=== PATIENT | female | born 1950 | race African-American/Black ===

== ENCOUNTER 2024-11-17 05:25 | Inpatient (IN) | payer MEDICARE, OTHER ==
[~2024-11-17] VITALS: Ht 177.8 cm; Wt 69.2 kg
[2024-11-17 06:50] LABS: Urine Bacteria None Seen /hpf (None Seen)
[2024-11-17 06:54] LABS: Hematocrit 46.3 % (36.0-46.0); Hemoglobin 14.2 g/dL (12.2-16.2); Mean Corpuscular Hemoglobin 26.7 pg (28.0-32.0); Mean Corpuscular Hgb Conc. 30.6 g/dL (32.0-36.0); Mean Corpuscular Volume 87.2 fL (80.0-100.0); Platelet Count (auto) 321 10^3/uL (140-450); Red Blood Cells 5.31 10^6/uL (4.0-5.20); Red Cell Distribution Width 18.4 % (11.8-14.3); White Blood Cell 26.5 10^3/uL (4.4-10.8)
[2024-11-17 06:56] LABS: Basophils % (manual) 0 (0.0-2.0); Blast Cells 0; Metamyelocytes % 0; Myelocytes % 0; Promyelocytes % 0; Reactive Lymphocytes 0
--- NOTE | 2024-11-17 06:56 | ED.PDOC ---
GI ASSESSMENT HPI Comments A 74 YEAR OLD FEMALE PRESENTS TO THE ED WITH COMPLAINT OF RIGHT MIDDLE ABDOMINAL PAIN. PATIENT STATES SHE HAS BEEN EXPERIENCING RIGHT-SIDED MIDDLE ABDOMINAL PAIN FOR THE PAST 2 DAYS. PATIENT NOTES THAT SHE WAS EXERCISING 2 DAYS AGO AND HER PAIN BEGAN SHORTLY AFTER. RIGHT MIDDLE ABD PAIN DOES NOT RADIATE TO BACK AND OTHER BODY REGION. PATIENT DENIES DYSURIA, HEMATURIA, FLANK PAIN, FEVER, CHILLS, SHORTNESS OF BREATH, CHEST PAIN, NAUSEA, VOMITING, HEADACHE, OR OTHER COMPLAINTS. NO OTHER SYMPTOMS OR MODIFYING FACTORS AT THIS TIME. PATIENT IS ALERT, ORIENTED X 4, AND HAS STEADY GAIT. Chief Complaint: Abdominal Pain Time Seen by MD: 06:22 Reviewed Notes: Nurses Notes, Medications, Allergies Allergies: Coded Allergies: NO KNOWN ALLERGIES (Unverified , 11/17/24) Information Source: Patient Mode of Arrival: Ambulatory Timing: Days Duration: Since onset, Days Prehospital treatment: None Quality: Aching, Sharp Vomitus: None Stool: Normal Severity: Moderate Recent: None Recent Hx of: None Pain Location: Other (RIGHT MIDDLE ABDOMINAL PAIN) Modifying Factors: Nothing Associated sign and symptoms: Abdominal Pain Past Medical History PAST MEDICAL HISTORY: DM, HTN Past Medical History (Other): POLYCYTHEMIA Surgical History: Cholecystectomy SECOND STEWARD History: No Pertinent SECOND STEWARD History Family History Family History: Reviewed,noncontributory to illness Social History Smoker: Non-Smoker Alcohol: Denies ETOH Use Drugs: Denies Drug Use Lives In: Home Constitutional: denies: chills, diaphoresis, fatigue, fever, malaise, sweats, weakness, others EENTM: denies: blurred vision, double vision, ear bleeding, ear discharge, ear drainage, ear pain, ear ringing, eye pain, eye redness, hearing loss, mouth pain, mouth swelling, nasal discharge, nose bleeding, nose congestion, nose pain, photophobia, tearing, throat pain, throat swelling, voice changes, others Respiratory: denies: cough, hemoptysis, orthopnea, SOB at rest, shortness of breath, SOB with excertion, stridor, wheezing, others Cardiovascular: denies: chest pain, dizzy spells, diaphoresis, Dyspnea on exertion, edema, irregular heart beat, left arm pain, lightheadedness, palpitations, PND, syncope, others Gastrointestinal: reports: abdominal pain (RIGHT-SIDED MIDDLE ABDOMINAL PAIN); denies: abdomen distended, blood streaked bowels, constipated, diarrhea, dysphagia, difficulty swallowing, hematemesis, melena, nausea, poor appetite, poor fluid intake, rectal bleeding, rectal pain, vomiting, others Genitourinary: denies: abnormal vagina bleeding, burning, dyspareunia, dysuria, flank pain, frequency, hematuria, incontinence, pain, , vagina discharge, urgency, others Neurological: denies: dizziness, fainting, headache, left sided numbness, left sided weakness, numbness, paresthesia, pre-existing deficit, right sided numbness, right sided weakness, seizure, speech problems, tingling, tremors, weakness, others Musculoskeletal: denies: back pain, gout, joint pain, joint swelling, muscle pain, muscle stiffness, neck pain, others Integumetry: denies: bruises, change in color, change in hair/nails, dryness, laceration, lesions, lumps, rash, wounds, others Allergic/Immunocompromised: denies: Difficulty Healing, Frequent Infections, Hives, Itching, others Hematologic/Lymphatic: denies: anemia, blood clots, easy bleeding, easy bruising, swollen glands, others Endocrine: denies: excessive hunger, excessive sweating, excessive thirst, excessive urination, flushing, intolerance to cold, intolerance to heat, unexplained weight gain, unexplained weight loss, others Psychiatric: denies: anxiety, bipolar disorder, depression, hopeless, panic disorder, schizophrenia, sleepless, suicidal, others All Other Systems: Reviewed and Negative Physical Exam General Appearance: No Apparent Distress, Normal HEENT: Normal ENT Inspection, PERRL/EOMI, Pharynx Normal, TMs Normal Neck: Full Range of Motion, Non-Tender, Normal, Normal Inspection Respiratory: Chest Non-Tender, Lungs Clear, No Accessory Muscle Use, No Respiratory Distress, Normal Breath Sounds Cardiovascular: No Edema, No JVD, No Murmur, No Gallop, Normal Peripheral Pulses, Regular Rate/Rhythm Breast Exam: Deferred Gastrointestinal: No Organomegaly, No Pulsatile Mass, Normal Bowel Sounds, Soft, Tenderness (RIGHT MIDDLE ABD WITH GUARDING, NO REBOUND TENDERNESS. ) Genitalia: Deferred Pelvic: Deferred Rectal: Deferred Extremities: No calf tenderness, Normal capillary refill, Normal inspection, Normal range of motion, Non-tender, No pedal edema Musculoskeletal : Apperance: Normal Neurologic: Alert, food service supervisor II-XII nml as Tested, No Motor Deficits, Normal Affect, Normal Mood, No Sensory Deficits Cerebellar Function: Normal Reflexes: Normal Skin: Dry, Normal Color, Warm Peripheral Pulses: 2+ carotid (R), 2+ carotid (L) Lymphatic: No Adenopathy Was a procedure done? Was a procedure done?: No GI differential Dx Differential Diagnosis: Appendicitis, Constipation, Diverticular disease, Gastritis/PUD, Gastroenteritis, Inflammatory BD, UTI, Urolithiasis, Viral, Kidney Stone X-Ray, Labs, Meds, VS Vital Signs Date Time Temp Pulse Resp B/P (MAP) Pulse Ox O2 Delivery O2 Flow Rate FiO2 11/17/24 09:38 71 16 165/72 11/17/24 09:17 97.7 75 20 158/70 (99) 100 97.7 11/17/24 08:53 75 20 158/70 11/17/24 06:30 97.4 77 18 169/72 (104) 98 97.4 11/17/24 06:30 77 18 98 Room Air 11/17/24 06:01 97.4 77 18 169/72 (104) 98 Lab Test 11/17/24 06:42 11/17/24 06:00 Range/Units White Blood Count 26.5 H 4.4-10.8 10^3/uL Red Blood Count 5.31 H 4.0-5.20 10^6/uL Hemoglobin 14.2 12.2-16.2 g/dL Hematocrit 46.3 H 36.0-46.0 % Mean Corpuscular Volume 87.2 80.0-100.0 fL Mean Corpuscular Hemoglobin 26.7 L 28.0-32.0 pg Mean Corpuscular Hemoglobin Concent 30.6 L 32.0-36.0 g/dL Red Cell Distribution Width 18.4 H 11.8-14.3 % Platelet Count 321 140-450 10^3/uL Mean Platelet Volume 7.9 6.9-10.8 fL Neutrophils (%) (Auto) 37.0-80.0 % Lymphocytes (%) (Auto) 10.0-50.0 % Monocytes (%) (Auto) 0.0-12.0 % Basophils (%) (Auto) 0.0-2.0 % Neutrophils # (Auto) 1.6-8.6 10 ^3/uL Lymphocytes # (Auto) 0.4-5.4 10 ^3/uL Monocytes # (Auto) 0-1.3 10 ^3/uL Differential Total Cells Counted 100.0 100 Neutrophils % (Manual) 80 37.0-80.0 Band Neutrophils % (Manual) 2 Lymphocytes % (Manual) 12 10.0-50.0 Monocytes % (Manual) 3 0-12 Eosinophils % (Manual) 3 0-7 Basophils % (Manual) 0 0.0-2.0 Metamyelocytes % (manual) 0 Myelocytes % (Manual) 0 Promyelocytes % (Manual) 0 Blast Cells % (Manual) 0 Reactive Lymphocytes 0 Platelet Estimate Adequate Sodium Level 139 136-145 mmol/L Potassium Level 4.9 3.5-5.1 mmol/L Chloride Level 106 98-107 mmol/L Carbon Dioxide Level 28 20-31 mmol/L Anion Gap 5 5-15 Blood Urea Nitrogen 18 9-23 mg/dL Creatinine 1.35 H 0.550-1.02 mg/dL Glomerular Filtration Rate Calc 41 >90 mL/min BUN/Creatinine Ratio 13.3 10.0-20.0 Serum Glucose 184 H 74-106 mg/dL Lactic Acid Level 0.9 0.4-2.0 mmol/L Calcium Level 11.1 H 8.7-10.4 mg/dL Total Bilirubin 0.3 0.2-1.0 mg/dL Aspartate Amino Transferase (AST) 19 13-40 U/L Alanine Aminotransferase (ALT) 16 7-40 U/L Alkaline Phosphatase 158 H 46-116 U/L Total Protein 7.2 5.7-8.2 g/dL Albumin 4.5 3.2-4.8 g/dL Lipase Pending Urine Color Yellow Yellow Urine Clarity Clear Clear Urine pH 5.5 5.0-9.0 Urine Specific [place] 1.028 1.001-1.035 Urine Protein 1+ H Negative Urine Ketones Negative Negative Urine Blood Negative Negative /uL Urine Nitrite Negative Negative Urine Bilirubin Negative Negative Urine Urobilinogen Normal Negative mg/dL Urine Leukocyte Esterase 1+ Negative /uL Urine RBC 1 0 - 4 /hpf Urine Microscopic WBC 5 0-5 /HPF Urine Squamous Epithelial Cells Few <5 /hpf Urine Bacteria None seen None Seen /hpf Urine Mucus Few None Seen Urine Glucose 1+ H Normal mg/dL Current Medications Medications (Trade) Dose Ordered Sig/Ber[place]ane Route Start Time Stop Time Status Last Admin Sodium Chloride 1,000 ml @ 1,000 mls/hr Q1H ONCE IV 11/17/24 07:30 11/17/24 08:29 DC 11/17/24 08:18 Ceftriaxone Sodium 50 ml @ 100 mls/hr ONCE ONCE IV 11/17/24 07:30 11/17/24 07:59 DC 11/17/24 08:53 Morphine Sulfate 2 mg ONCE ONCE IV 11/17/24 07:30 11/17/24 07:35 DC 11/17/24 08:53 Ondansetron HCl (Zofran) 4 mg ONCE ONCE IV 11/17/24 07:30 11/17/24 07:35 DC 11/17/24 08:54 CLINICAL INFORMATION: 74 years old, Female; right mid abdominal pain. History of hysterectomy and cholecystectomy. TECHNIQUE: Axial CT images of the abdomen and pelvis were obtained without IV contrast. Coronal and sagittal reformatted images were obtained, reviewed, and stored. Evaluation of the parenchymal organs is limited without IV contrast. Evaluation of the bowel and mesentery is limited without oral contrast. All CT scans at this medical facility are performed using dose modulation techniques as appropriate to a performed exam including the following: Automated exposure control was utilized; adjustment of the MA and/or KV according to patient size; and use of iterative reconstruction technique. CTDIvol = 7.57 mGy DLP = 369.66 mGy-cm COMPARISON: None FINDINGS: Lung bases: Atelectasis in the lung bases. Liver: Grossly unremarkable in its noncontrast enhanced appearance. No abnormal density or focal lesion identified. Biliary: Cholecystectomy. Spleen: Unremarkable. Pancreas: Grossly unremarkable in its noncontrast enhanced appearance. Adrenal glands: Unremarkable. No mass. Kidneys and bladder: No hydronephrosis. Fluid density lesion measuring up to 1.4 cm in the upper pole of the right kidney, likely a cyst, but not well characterized on this noncontrast enhanced exam. There is a 1 mm calcification in the right hemipelvis, appears to be adjacent to or possibly within the distal right ureter (series 2 image 75 correlating with series 601, image 53), with no associated hydronephrosis or hydroureter. Can not exclude a distal ureteral calculus in the appropriate clinical setting. There are multiple additional calcifications in the pelvis which are likely phleboliths. There are no renal calculi. No calculi visualized in the bladder. Aorta/Vascular: Scattered atherosclerotic calcification. No abdominal aortic aneurysm. Retroperitoneum: No mass or lymphadenopathy. Bowel/mesentery: Nonspecific nondilated fluid-filled small bowel loops. No small bowel obstruction. Appendix is visualized and appears unremarkable. Scattered colonic diverticula without adjacent inflammatory changes to suggest diverticulitis. Pelvic organs: Uterus is surgically absent. Abdominal wall: Small fat containing umbilical hernia. Bones: No acute fracture or suspicious intraosseous lesion. IMPRESSION: 1. 1 mm calcification in the right hemipelvis adjacent to or possibly within the distal right ureter. May be a phlebolith adjacent to the distal right ureter. Can not exclude distal ureteral calculus in the appropriate clinical setting. No hydronephrosis. No renal or bladder calculi visualized. 2. Nonspecific nondilated fluid-filled small bowel loops. Findings may be seen with ileus or enteritis in the appropriate clinical setting. 3. Colonic diverticulosis with no CT evidence for diverticulitis. 4. Fluid density lesion in the upper pole of the right kidney, likely a cyst, although not well characterized on noncontrast enhanced CT. 5. Additional findings as detailed above. ATED BY: BALJINDER COOPER DO DICTATED DATE/TIME: 11/17/24724 SIGNED BY: BALJINDER COOPER DO SIGNED DATE/TIME: 11/17/24724 CC: X-Ray, Labs, Meds, VS Comment EXTERNAL MEDICAL RECORDS REVIEWED: [NONE] INDEPENDENT HISTORIANS: [NONE] SOCIAL DETERMINANTS OF HEALTH: [NONE] LABS ORDERED: CBC, CMP, UA, LACTIC ACID W/REFLEX REVIEWED AND INTERPRETED RESULTS: IMAGING ORDERED: CT ABD/PEL TREATMENTS ORDERED: NS 1 L IV, ZOFRAN 4 MG IV, MORPHINE 2 MG IV, ROCEPHIN 1 G IV PROCEDURES PERFORMED: NONE CRITICAL CARE TIME: NONE I HAVE DISCUSSED THE PATIENT WITH THE ATTENDING PHYSICIAN DR. CURTIS AND HE AGREES WITH THE PATIENT'S PLAN OF CARE. UPON MY PHYSICAL EXAMINATION, THE PATIENT HAD TENDERNESS AND GUARDING NOTED UPON PALPATION TO HER RIGHT MIDDLE ABDOMEN, BUT NO REBOUND TENDERNESS WAS NOTED, NO CVA TENDERNESS WAS NOTED UPON PALPATION. MY DIFFERENTIAL DIAGNOSIS INCLUDES, MUSCLE STRAIN, MUSCLE SPASM, UTI, ACUTE CYSTITIS, KIDNEY STONE, APPENDICITIS, BOWEL OBSTRUCTION, DIVERTICULITIS. PATIENT'S LABS REVEALED AN ELEVATED WHITE BLOOD COUNT OF 26.5, AND LEUKOCYTE 1+ IN HER URINE, BUT NO OTHER ACUTE FINDINGS. PATIENT'S CT SCAN OF HER ABDOMEN AND PELVIS REVEALED A POSSIBLE RENAL STONE AND FINDINGS CONSISTENT WITH POSSIBLE ENTERITIS. PATIENT'S ELEVATED WHITE BLOOD COUNT, RENAL STONE, AND URINARY TRACT INFECTION, I HAVE DETERMINED THE PATIENT SHOULD BE ADMITTED FOR FURTHER TREATMENT AND EVALUATION. THE ON-CALL ADMITTING PHYSICIAN WILL BE CONTACTED FOR ADMISSION OF THIS PATIENT. Images Reviewed?: Images reviewed and evaluated by me Time of 1ST Reevaluation: 08:44 Reevaluation 1ST: Unchanged Patient Education/Counseling: Diagnosis, Treatment Family Education/Counseling: Diagnosis, Treatment Departure 1 Departure Time of Disposition: 08:44 Impression: Primary Impression: Renal stone Additional Impressions: Leukocytosis Qualified Codes: D72.829 - Elevated white blood cell count, unspecified Acute UTI (urinary tract infection) Disposition: ADMITTED INPATIENT Condition: Serious Critical Care Note Critical Care Time?: No Stability Stability form required: Yes Unstable for transfer: Requires medication, ED Physician Assesment, Possible rapid decline Heart Score Heart Score: Heart Score Response (Comments) Value History N/A 0 EKG N/A 0 Age N/A 0 Risk Factors N/A 0 Troponin N/A 0 Total 0 I personally scribed for HÉCTOR LYONS ([email or web address]) on 11/17/24 at 06:56. Electronically submitted by Greg Martins ([email or web address]). I personally scribed for HÉCTOR LYONS ([email or web address]) on 11/17/24 at 07:42. Electronically submitted by Greg Martins ([email or web address]). I personally scribed for HÉCTOR LYONS ([email or web address]) on 11/17/24 at 07:44. Electronically submitted by Greg Martins ([email or web address]). HÉCTOR LYONS Nov 17, 2024 06:56
[2024-11-17 06:57] LABS: Urine Blood Negative /uL (Negative); Urine Clarity Clear (Clear); Urine Color Yellow (Yellow); Urine Mucus FEW (None Seen); Urine Protein, UAD 1+ (Negative); Urine Specific Gravity 1.028 (1.001-1.035); Urine Squamous Epithelial Cell FEW /hpf (<5); Urine Urobilinogen Normal (Negative); Urine WBC 5 /HPF (0-5); Urine pH 5.5 (5.0-9.0)
[2024-11-17 07:10] LABS: Alanine Aminotransferase 16 U/L (7-40); Albumin 4.5 g/dL (3.2-4.8); Alkaline Phosphatase 158 U/L (46-116); Anion Gap 5 (5-15); Aspartate Aminotransferase 19 U/L (13-40); BUN/Creatinine Ratio 13.3 (10.0-20.0); Bilirubin, Total 0.3 mg/dL (0.2-1.0); Blood Urea Nitrogen 18 mg/dL (9-23); Calcium 11.1 mg/dL (8.7-10.4); Carbon Dioxide 28 mmol/L (20-31); Chloride 106 mmol/L (98-107); Glucose 184 mg/dL (74-106); Potassium 4.9 mmol/L (3.5-5.1); Sodium 139 mmol/L (136-145); Total Protein 7.2 g/dL (5.7-8.2)
--- NOTE | 2024-11-17 07:28 | DVH ---
CLINICAL INFORMATION: 74 years old, Female; right mid abdominal pain. History of hysterectomy and c holecystectomy. TECHNIQUE: Axial CT images of the abdomen and pelvis were obtained without IV contrast. Coronal and sagittal reformatted images were obtained, reviewed, and stored. Evaluation of the parenchymal organs is limited without IV contrast. Evaluation of the bowel and mesentery is limited without oral contra st. All CT scans at this medical facility are performed using dose modulation techniques as appropria te to a performed exam including the following: Automated exposure control was utilized; adjustment o f the MA and/or KV according to patient size; and use of iterative reconstruction technique. CTDIvol = 7.57 mGy DLP = 369.66 mGy-cm COMPARISON: None FINDINGS: Lung bases: Atelectasis in the lung bases. Liver: Grossly unremarkable in its noncontrast enhanced appearance. No abnormal density or focal les ion identified. Biliary: Cholecystectomy. Spleen: Unremarkable. Pancreas: Grossly unremarkable in its noncontrast enhanced appearance. Adrenal glands: Unremarkable. No mass. Kidneys and bladder: No hydronephrosis. Fluid density lesion measuring up to 1.4 cm in the upper pole of the right kidney, likely a cyst, but not well characterized on this noncontrast enhanced exam. Th ere is a 1 mm calcification in the right hemipelvis, appears to be adjacent to or possibly within the distal right ureter (series 2 image 75 correlating with series 601, image 53), with no associated hy dronephrosis or hydroureter. Can not exclude a distal ureteral calculus in the appropriate clinical s etting. There are multiple additional calcifications in the pelvis which are likely phleboliths. Ther e are no renal calculi. No calculi visualized in the bladder. Aorta/Vascular: Scattered atherosclerotic calcification. No abdominal aortic aneurysm. Retroperitoneum: No mass or lymphadenopathy. Bowel/mesentery: Nonspecific nondilated fluid-filled small bowel loops. No small bowel obstruction. A ppendix is visualized and appears unremarkable. Scattered colonic diverticula without adjacent infla mmatory changes to suggest diverticulitis. Pelvic organs: Uterus is surgically absent. Abdominal wall: Small fat containing umbilical hernia. Bones: No acute fracture or suspicious intraosseous lesion. IMPRESSION: 1. 1 mm calcification in the right hemipelvis adjacent to or possibly within the distal right ureter. May be a phlebolith adjacent to the distal right ureter. Can not exclude distal ureteral calculus i n the appropriate clinical setting. No hydronephrosis. No renal or bladder calculi visualized. 2. Nonspecific nondilated fluid-filled small bowel loops. Findings may be seen with ileus or enterit is in the appropriate clinical setting. 3. Colonic diverticulosis with no CT evidence for diverticulitis. 4. Fluid density lesion in the upper pole of the right kidney, likely a cyst, although not well joshua cterized on noncontrast enhanced CT. 5. Additional findings as detailed above.
[2024-11-17] MEDS: SODIUM CHLORIDE 0.9% 1,000 ML IV ONE (08:18)
[2024-11-17 08:38] LABS: Band Neutrophils % (manual) 2; Eosinophils % (manual) 3 (0-7); Lymphocytes % (manual) 12 (10.0-50.0); Monocytes % (manual) 3 (0-12); Platelet Estimate Adequate
[2024-11-17] MEDS: cefTRIAXone 1GM/50ML D5W 50 ML IV ONE (08:53)
[2024-11-17] MEDS: MORPHINE SULFATE INJ 2 MG/ml SYRG IV ONE (08:53)
[2024-11-17] MEDS: ONDANSETRON HCL 4 MG/2 ML VIAL IV ONE (08:54)
[2024-11-17] MEDS: TAMSULOSIN HYDROCHLORIDE 0.4 MG CAP PO SCH (10:15)
[2024-11-17] MEDS ORDERED: ONDANSETRON HCL 4 MG/2 ML VIAL IV PRN (10:15)
[2024-11-17] MEDS ORDERED: DOCUSATE SOD 100 MG CAP PO PRN (10:15)
[2024-11-17] MEDS ORDERED: ACETAMINOPHEN 325 MG TAB PO PRN (10:15)
--- NOTE | 2024-11-17 10:24 | DVHHP2 ---
Admitting Diagnosis: Abdominal pain History of Present Illness A 74 YEAR OLD FEMALE PRESENTS TO THE ED WITH COMPLAINT OF RIGHT MIDDLE ABDOMINAL PAIN. PATIENT STATES SHE HAS BEEN EXPERIENCING RIGHT-SIDED MIDDLE ABDOMINAL PAIN FOR THE PAST 2 DAYS. PATIENT NOTES THAT SHE WAS EXERCISING 2 DAYS AGO AND HER PAIN BEGAN SHORTLY AFTER. RIGHT MIDDLE ABD PAIN DOES NOT RADIATE TO BACK AND OTHER BODY REGION. PATIENT DENIES DYSURIA, HEMATURIA, FLANK PAIN, FEVER, CHILLS, SHORTNESS OF BREATH, CHEST PAIN, NAUSEA, VOMITING, HEADACHE, OR OTHER COMPLAINTS. NO OTHER SYMPTOMS OR MODIFYING FACTORS AT THIS TIME. PATIENT IS ALERT, ORIENTED X 4, AND HAS STEADY GAIT. PAST MEDICAL HISTORY: DM, HTN Past Medical History (Other): POLYCYTHEMIA Surgical History: Cholecystectomy STOCK DIGGER History: No Pertinent STOCK DIGGER History Family History Family History: Reviewed,noncontributory to illness Social History Smoker: Non-Smoker Alcohol: Denies ETOH Use Drugs: Denies Drug Use Lives In: Home Allergies: Coded Allergies: NO KNOWN ALLERGIES (Unverified , 11/17/24) Vital Signs Vital Signs Date Time Temp Pulse Resp B/P (MAP) Pulse Ox O2 Delivery O2 Flow Rate FiO2 11/17/24 09:38 71 16 165/72 11/17/24 09:17 97.7 100 97.7 11/17/24 06:30 Room Air Physical Exam 74 years old woman, well nourished well developed. Moderate distress HEENT-atraumatic, normocephalic Heart-regular rate and rhythm Lungs clear to auscultate bilaterally Abdomen soft nontender nondistended Musculoskeletal-right lower flank pain, no edema cyanosis Neuro-AO x3, no focal deficits Results Labs Test 11/17/24 06:42 11/17/24 06:00 Range/Units White Blood Count 26.5 H 4.4-10.8 10^3/uL Red Blood Count 5.31 H 4.0-5.20 10^6/uL Hemoglobin 14.2 12.2-16.2 g/dL Hematocrit 46.3 H 36.0-46.0 % Mean Corpuscular Volume 87.2 80.0-100.0 fL Mean Corpuscular Hemoglobin 26.7 L 28.0-32.0 pg Mean Corpuscular Hemoglobin Concent 30.6 L 32.0-36.0 g/dL Red Cell Distribution Width 18.4 H 11.8-14.3 % Platelet Count 321 140-450 10^3/uL Mean Platelet Volume 7.9 6.9-10.8 fL Neutrophils (%) (Auto) 37.0-80.0 % Lymphocytes (%) (Auto) 10.0-50.0 % Monocytes (%) (Auto) 0.0-12.0 % Basophils (%) (Auto) 0.0-2.0 % Neutrophils # (Auto) 1.6-8.6 10 ^3/uL Lymphocytes # (Auto) 0.4-5.4 10 ^3/uL Monocytes # (Auto) 0-1.3 10 ^3/uL Differential Total Cells Counted 100.0 100 Neutrophils % (Manual) 80 37.0-80.0 Band Neutrophils % (Manual) 2 Lymphocytes % (Manual) 12 10.0-50.0 Monocytes % (Manual) 3 0-12 Eosinophils % (Manual) 3 0-7 Basophils % (Manual) 0 0.0-2.0 Metamyelocytes % (manual) 0 Myelocytes % (Manual) 0 Promyelocytes % (Manual) 0 Blast Cells % (Manual) 0 Reactive Lymphocytes 0 Platelet Estimate Adequate Sodium Level 139 136-145 mmol/L Potassium Level 4.9 3.5-5.1 mmol/L Chloride Level 106 98-107 mmol/L Carbon Dioxide Level 28 20-31 mmol/L Anion Gap 5 5-15 Blood Urea Nitrogen 18 9-23 mg/dL Creatinine 1.35 H 0.550-1.02 mg/dL Glomerular Filtration Rate Calc 41 >90 mL/min BUN/Creatinine Ratio 13.3 10.0-20.0 Serum Glucose 184 H 74-106 mg/dL Lactic Acid Level 0.9 0.4-2.0 mmol/L Calcium Level 11.1 H 8.7-10.4 mg/dL Total Bilirubin 0.3 0.2-1.0 mg/dL Aspartate Amino Transferase (AST) 19 13-40 U/L Alanine Aminotransferase (ALT) 16 7-40 U/L Alkaline Phosphatase 158 H 46-116 U/L Total Protein 7.2 5.7-8.2 g/dL Albumin 4.5 3.2-4.8 g/dL Urine Color Yellow Yellow Urine Clarity Clear Clear Urine pH 5.5 5.0-9.0 Urine Specific [place] 1.028 1.001-1.035 Urine Protein 1+ H Negative Urine Ketones Negative Negative Urine Blood Negative Negative /uL Urine Nitrite Negative Negative Urine Bilirubin Negative Negative Urine Urobilinogen Normal Negative mg/dL Urine Leukocyte Esterase 1+ Negative /uL Urine RBC 1 0 - 4 /hpf Urine Microscopic WBC 5 0-5 /HPF Urine Squamous Epithelial Cells Few <5 /hpf Urine Bacteria None seen None Seen /hpf Urine Mucus Few None Seen Urine Glucose 1+ H Normal mg/dL Primary Diagnosis Right renal calculus Plan CT scan showed rate and rhythm calculus. Check ultrasound to rule out obstruction IV fluids LR Tamsulosin Pain control Antiemetic Patient does not recall medication and on chart. Assessment medication reconsideration Full code PPI for prophylaxis Renal diet Heparin for DVT prophylaxis Plan discussed with: Patient Date of Service: Nov 17, 2024 Billing Provider: YOMI RIBERA MD Common Visit Codes: [id number] INP/OBS CARE (MOD) YOMI RIBERA MD Nov 17, 2024 10:24
--- NOTE | 2024-11-17 11:12 | DVH ---
RENAL ULTRASOUND CLINICAL HISTORY: eval for obstruction TECHNIQUE: Multiple ultrasound images of the kidneys and bladder were obtained. COMPARISON: None FINDINGS: The right kidney measures 10.5 cm in length. The left kidney measures 10.7 cm. The kidneys demonstrat e appropriate echotexture and cortical thickness without evidence of nephrolithiasis or hydronephros is. There is a 1.3 cm right upper pole renal cysts. The bladder appears within normal limits with prevoid volume measuring 72 cc. IMPRESSION: 1. Unremarkable renal ultrasound. HS:Y
[2024-11-17] MEDS: PANTOPRAZOLE 40 MG/10 ML VIAL INJ IV SCH (14:51)
[2024-11-17] MEDS: SODIUM CHLOR 0.9% PF (SALINE LOCK) 10ML VIAL/SYR IV SCH (14:58)
[2024-11-17] MEDS: LACTATED RINGER'S 1,000 ML IV ONE (15:03)
[2024-11-17 16:00] VITALS: BP 149/61; PULSE 75; RESP 14; TEMP 96.9; O2SAT 97
[2024-11-17] MEDS: HYDROmorphone HCL 2 MG/ML VL/or syr IV PRN (18:04)
[2024-11-17] MEDS ORDERED: METF-370 PO (18:45)
[2024-11-17] MEDS ORDERED: HYDR25TA87 PO (18:45)
[2024-11-17] MEDS ORDERED: AMLO1TAB22 PO (18:45)
[2024-11-17] MEDS ORDERED: OMEP-386 PO (18:45)
[2024-11-17] MEDS ORDERED: GLIM4TAB42 PO (18:45)
[2024-11-17] MEDS ORDERED: HYDR500C3 PO (18:45)
[2024-11-17] MEDS ORDERED: SIMV20TA20 PO (18:45)
[2024-11-17 19:35] VITALS: PULSE 88; RESP 18
[2024-11-17 20:18] VITALS: PULSE 88; RESP 18
[2024-11-17 21:00] VITALS: BP 176/76; PULSE 88; RESP 17; TEMP 98; O2SAT 97
[2024-11-17] MEDS: hydrALAZINE HCL 20 MG/ML VL IV PRN (22:01)
[2024-11-18] VITALS (7 sets, daily range): BP systolic 128–159; BP diastolic 56–68; PULSE 72–80; RESP 16–19; TEMP 97.7–99; O2SAT 94–99
[2024-11-18 07:04] LABS: Basophils # (auto) 0 10 ^3/uL (0-0.2); Basophils % (auto) 0.2 % (0.0-2.0); Eosinophils # (auto) 0.3 10 ^3/uL (0-0.8); Eosinophils % (auto) 1.3 % (0.0-7.0); Hematocrit 42.3 % (36.0-46.0); Hemoglobin 13.4 g/dL (12.2-16.2); Lymphocytes # (auto) 1.4 10 ^3/uL (0.4-5.4); Lymphocytes % (auto) 6.5 % (10.0-50.0); Mean Corpuscular Hemoglobin 27.3 pg (28.0-32.0); Mean Corpuscular Hgb Conc. 31.7 g/dL (32.0-36.0); Mean Corpuscular Volume 86.2 fL (80.0-100.0); Monocytes # (auto) 0.6 10 ^3/uL (0-1.3); Platelet Count (auto) 263 10^3/uL (140-450); Red Blood Cells 4.91 10^6/uL (4.0-5.20); Red Cell Distribution Width 17.9 % (11.8-14.3); White Blood Cell 21.3 10^3/uL (4.4-10.8)
[2024-11-18 07:10] LABS: Alanine Aminotransferase 16 U/L (7-40); Albumin 4.1 g/dL (3.2-4.8); Anion Gap 8 (5-15); Aspartate Aminotransferase 16 U/L (13-40); BUN/Creatinine Ratio 13.8 (10.0-20.0); Blood Urea Nitrogen 16 mg/dL (9-23); Calcium 10.3 mg/dL (8.7-10.4); Carbon Dioxide 27 mmol/L (20-31); Chloride 104 mmol/L (98-107); Sodium 139 mmol/L (136-145)
[2024-11-18 07:11] LABS: Bilirubin, Total 0.3 mg/dL (0.2-1.0); Total Protein 6.3 g/dL (5.7-8.2)
[2024-11-18 07:16] LABS: Alkaline Phosphatase 167 U/L (46-116); Glucose 176 mg/dL (74-106)
[2024-11-18] MEDS: ENOXAPARIN SOD 40 MG/0.4 ML SYRINGE SC SCH (09:18)
--- NOTE | 2024-11-18 14:55 | DVHPN2 ---
Reviewed: Care Plan, H&P, Labs, Medications, Previous Orders, Radiology Changes from previous H/P or p: No Changes Objective Vitals Vital Signs Date Time Temp Pulse Resp B/P (MAP) Pulse Ox O2 Delivery O2 Flow Rate FiO2 11/18/24 12:58 98.0 73 16 128/68 (88) 94 98.0 11/18/24 08:10 Room Air* 0 21 Intake/Output Intake and Output 11/18/24 07:00 Intake Total 837 ml Output Total 800 ml Balance 37 ml Intake Oral 0 ml IV Total 487 ml Other 350 ml Output Urine Total 800 ml Medications Current Medications Medications Dose Ordered Sig/Berhane Route Start Time Stop Time Status Last Admin Dose Admin Tamsulosin HCl 0.4 mg DAILY PO 11/17/24 10:15 11/18/24 09:18 0.4 MG Hydralazine HCl 5 mg Q4H PRN IV 11/17/24 10:15 11/17/24 22:01 5 MG Sodium Chloride 10 ml Q8HR IV 11/17/24 14:00 11/18/24 09:18 10 ML Docusate Sodium 100 mg BIDPRN PRN PO 11/17/24 10:15 Acetaminophen 650 mg Q6HP PRN PO 11/17/24 10:15 Acetaminophen/ Hydrocodone Bitart 1 tab Q4HP PRN PO 11/17/24 10:15 Hydromorphone HCl 0.5 mg Q4HP PRN IV 11/17/24 10:15 11/17/24 22:13 0.5 MG Ondansetron HCl 4 mg Q4HP PRN IV 11/17/24 10:15 Enoxaparin Sodium 40 mg DAILY SC 11/18/24 10:00 11/18/24 09:18 40 MG Pantoprazole Sodium 40 mg DAILY IV 11/17/24 10:30 11/18/24 09:18 40 MG Ceftriaxone Sodium 50 ml @ 100 mls/hr DAILY@09 IV 11/19/24 09:00 UNV Laboratory Results Laboratory Tests 11/18/24 05:52 Chemistry Test 11/18/24 05:52 Albumin 4.1 g/dL (3.2-4.8) Calcium Level 10.3 mg/dL (8.7-10.4) Total Protein 6.3 g/dL (5.7-8.2) LFT Test 11/18/24 05:52 Alanine Aminotransferase (ALT) 16 U/L (7-40) Alkaline Phosphatase 167 U/L (46-116) H Aspartate Amino Transferase (AST) 16 U/L (13-40) Total Bilirubin 0.3 mg/dL (0.2-1.0) Urinalysis Test 11/17/24 06:00 Urine Color Yellow (Yellow) Urine Clarity Clear (Clear) Urine pH 5.5 (5.0-9.0) Urine Specific [place] 1.028 (1.001-1.035) Urine Protein 1+ (Negative) H Urine Ketones Negative (Negative) Urine Blood Negative /uL (Negative) Urine Nitrite Negative (Negative) Urine Bilirubin Negative (Negative) Urine Urobilinogen Normal mg/dL (Negative) Urine Leukocyte Esterase 1+ /uL (Negative) Urine RBC 1 /hpf (0 - 4) Urine Microscopic WBC 5 /HPF (0-5) Urine Squamous Epithelial Cells Few /hpf (<5) Urine Bacteria None seen /hpf (None Seen) Urine Mucus Few (None Seen) Urine Glucose 1+ mg/dL (Normal) H Microbiology Microbiology Date/Time Source Procedure Growth Status 11/17/24 06:00 Voided Urine Urine Culture - Preliminary Resulted Labs and/or images reviewed: Labs reviewed by me, Image(s) reviewed by me Assessment/Plan Assessment/Plan Sepsis secondary to acute pyelonephritis WBC 16.5 K: Blood cultures urine cultures Rocephin 3 mm right ureteral calculus: Consult for Urology Acute diverticulosis, no diverticulitis Acute dehydration: IV fluids Plan discussed with: Patient My Orders Orders - MARTI SLAUGHTER MD Procedure Category Date Status Time Blood Culture JONATAN 11/18/24 Transmitted 14:52 Urine Bacterial JONATAN 11/18/24 Transmitted Culture 14:52 Ceftriaxone 1gm/50ml PHA 11/18/24 Logged D5w (Rocephin) 15:00 Ceftriaxone 1gm/50ml PHA 11/19/24 Logged D5w (Rocephin) 09:00 Date of Service: Nov 18, 2024 Billing Provider: MARTI SLAUGHTER MD Common Visit Codes: [id number] INP/OBS CARE(HIGH) MARTI SLAUGHTER MD Nov 18, 2024 14:55
[2024-11-18] MEDS: cefTRIAXone 1GM/50ML D5W 50 ML IV ONE (15:32)
[2024-11-19] VITALS (8 sets, daily range): BP systolic 130–164; BP diastolic 60–70; PULSE 63–86; RESP 16–20; TEMP 97.9–98.8; O2SAT 96–97
[2024-11-19 07:18] LABS: Basophils # (auto) 0.1 10 ^3/uL (0-0.2); Basophils % (auto) 0.4 % (0.0-2.0); Eosinophils # (auto) 0.3 10 ^3/uL (0-0.8); Eosinophils % (auto) 1.5 % (0.0-7.0); Hemoglobin 13.2 g/dL (12.2-16.2); Lymphocytes # (auto) 1.5 10 ^3/uL (0.4-5.4); Lymphocytes % (auto) 7.4 % (10.0-50.0); Mean Corpuscular Hemoglobin 27.1 pg (28.0-32.0); Mean Corpuscular Hgb Conc. 31.5 g/dL (32.0-36.0); Mean Corpuscular Volume 86.1 fL (80.0-100.0); Monocytes # (auto) 0.9 10 ^3/uL (0-1.3); Monocytes % (auto) 4.1 % (0.0-12.0); Neutrophils # (auto) 17.8 10 ^3/uL (1.6-8.6); Neutrophils % (auto) 86.6 % (37.0-80.0); Platelet Count (auto) 263 10^3/uL (140-450); Red Blood Cells 4.88 10^6/uL (4.0-5.20); Red Cell Distribution Width 17.8 % (11.8-14.3); White Blood Cell 20.6 10^3/uL (4.4-10.8)
[2024-11-19 07:44] LABS: Alanine Aminotransferase 15 U/L (7-40); Anion Gap 10 (5-15); Aspartate Aminotransferase 17 U/L (13-40); BUN/Creatinine Ratio 14.5 (10.0-20.0); Blood Urea Nitrogen 17 mg/dL (9-23); Carbon Dioxide 26 mmol/L (20-31); Chloride 103 mmol/L (98-107); Potassium 3.8 mmol/L (3.5-5.1); Sodium 139 mmol/L (136-145)
[2024-11-19 07:45] LABS: Alkaline Phosphatase 155 U/L (46-116); Bilirubin, Total 0.4 mg/dL (0.2-1.0); Glucose 144 mg/dL (74-106); Total Protein 6.4 g/dL (5.7-8.2)
--- NOTE | 2024-11-19 09:18 | DVHPN2 ---
Reviewed: Care Plan, H&P, Labs, Medications, Previous Orders, Radiology Changes from previous H/P or p: No Changes Objective Vitals Vital Signs Date Time Temp Pulse Resp B/P (MAP) Pulse Ox O2 Delivery O2 Flow Rate FiO2 11/19/24 07:50 98.1 81 17 157/63 (94) 97 98.1 11/18/24 20:00 Room Air* 0 21 Intake/Output Intake and Output 11/19/24 07:00 Intake Total 1870 ml Balance 1870 ml Intake Oral 1820 ml IV Total 50 ml # Voids 10 Medications Current Medications Medications Dose Ordered Sig/Berhane Route Start Time Stop Time Status Last Admin Dose Admin Tamsulosin HCl 0.4 mg DAILY PO 11/17/24 10:15 11/18/24 09:18 0.4 MG Hydralazine HCl 5 mg Q4H PRN IV 11/17/24 10:15 11/17/24 22:01 5 MG Sodium Chloride 10 ml Q8HR IV 11/17/24 14:00 11/19/24 05:51 10 ML Docusate Sodium 100 mg BIDPRN PRN PO 11/17/24 10:15 Acetaminophen 650 mg Q6HP PRN PO 11/17/24 10:15 Acetaminophen/ Hydrocodone Bitart 1 tab Q4HP PRN PO 11/17/24 10:15 Hydromorphone HCl 0.5 mg Q4HP PRN IV 11/17/24 10:15 11/17/24 22:13 0.5 MG Ondansetron HCl 4 mg Q4HP PRN IV 11/17/24 10:15 Enoxaparin Sodium 40 mg DAILY SC 11/18/24 10:00 11/18/24 09:18 40 MG Pantoprazole Sodium 40 mg DAILY IV 11/17/24 10:30 11/18/24 09:18 40 MG Ceftriaxone Sodium 50 ml @ 100 mls/hr DAILY@09 IV 11/19/24 09:00 Laboratory Results Laboratory Tests 11/19/24 06:06 Chemistry Test 11/19/24 06:06 Albumin 4.0 g/dL (3.2-4.8) Calcium Level 11.0 mg/dL (8.7-10.4) H Total Protein 6.4 g/dL (5.7-8.2) LFT Test 11/19/24 06:06 Alanine Aminotransferase (ALT) 15 U/L (7-40) Alkaline Phosphatase 155 U/L (46-116) H Aspartate Amino Transferase (AST) 17 U/L (13-40) Total Bilirubin 0.4 mg/dL (0.2-1.0) Urinalysis Test 11/17/24 06:00 Urine Color Yellow (Yellow) Urine Clarity Clear (Clear) Urine pH 5.5 (5.0-9.0) Urine Specific [place] 1.028 (1.001-1.035) Urine Protein 1+ (Negative) H Urine Ketones Negative (Negative) Urine Blood Negative /uL (Negative) Urine Nitrite Negative (Negative) Urine Bilirubin Negative (Negative) Urine Urobilinogen Normal mg/dL (Negative) Urine Leukocyte Esterase 1+ /uL (Negative) Urine RBC 1 /hpf (0 - 4) Urine Microscopic WBC 5 /HPF (0-5) Urine Squamous Epithelial Cells Few /hpf (<5) Urine Bacteria None seen /hpf (None Seen) Urine Mucus Few (None Seen) Urine Glucose 1+ mg/dL (Normal) H Microbiology Microbiology Date/Time Source Procedure Growth Status 11/17/24 06:00 Voided Urine Urine Culture - Preliminary Resulted Labs and/or images reviewed: Labs reviewed by me, Image(s) reviewed by me Assessment/Plan Assessment/Plan Sepsis secondary to acute pyelonephritis WBC 16.5 K: Blood cultures pending urine cultures, continue Rocephin 3 mm right ureteral calculus: Consult for Urology Acute diverticulosis, no diverticulitis Acute dehydration: IV fluids History of polycythemia vera: Continue home medication hydroxyurea Plan discussed with: Patient My Orders Orders - MARTI SLAUGHTER MD Procedure Category Date Status Time Blood Culture JONATAN 11/18/24 In Process 14:52 Urine Bacterial JONATAN 11/18/24 Logged Culture 14:52 Ceftriaxone 1gm/50ml PHA 11/19/24 In Process D5w (Rocephin) 09:00 * Urology Consult CONS 11/18/24 Transmitted 14:55 Date of Service: Nov 19, 2024 Billing Provider: MARTI SLAUGHTER MD Common Visit Codes: [id number] INP/OBS CARE(HIGH) MARTI SLAUGHTER MD Nov 19, 2024 09:17
[2024-11-19] MEDS: cefTRIAXone 1GM/50ML D5W 50 ML IV SCH (09:20)
[2024-11-19] MEDS: hydroxyUREA 500 MG CAP PO SCH (11:01)
[2024-11-20 01:00] VITALS: BP 150/64; PULSE 74; RESP 18; TEMP 98.3; O2SAT 97
[2024-11-20 05:00] VITALS: BP 141/69; PULSE 75; RESP 18; TEMP 98.4; O2SAT 95
[2024-11-20 06:27] LABS: Basophils # (auto) 0.1 10 ^3/uL (0-0.2); Eosinophils # (auto) 0.3 10 ^3/uL (0-0.8); Lymphocytes # (auto) 1.5 10 ^3/uL (0.4-5.4); Monocytes # (auto) 0.9 10 ^3/uL (0-1.3); White Blood Cell 21.4 10^3/uL (4.4-10.8)
[2024-11-20 06:28] LABS: Basophils % (auto) 0.3 % (0.0-2.0); Eosinophils % (auto) 1.6 % (0.0-7.0); Hematocrit 43.6 % (36.0-46.0); Hemoglobin 13.5 g/dL (12.2-16.2); Lymphocytes % (auto) 7.1 % (10.0-50.0); Mean Corpuscular Hemoglobin 26.4 pg (28.0-32.0); Mean Corpuscular Hgb Conc. 31.1 g/dL (32.0-36.0); Mean Corpuscular Volume 85.1 fL (80.0-100.0); Monocytes % (auto) 4.3 % (0.0-12.0); Neutrophils # (auto) 18.6 10 ^3/uL (1.6-8.6); Neutrophils % (auto) 86.7 % (37.0-80.0); Nucleated Red Blood Cells % 0.1 %; Platelet Count (auto) 255 10^3/uL (140-450); Red Blood Cells 5.13 10^6/uL (4.0-5.20); Red Cell Distribution Width 17.5 % (11.8-14.3)
[2024-11-20 07:00] LABS: Alanine Aminotransferase 14 U/L (7-40); Albumin 4.2 g/dL (3.2-4.8); Anion Gap 9 (5-15); Aspartate Aminotransferase 14 U/L (13-40); BUN/Creatinine Ratio 14.8 (10.0-20.0); Bilirubin, Total 0.4 mg/dL (0.2-1.0); Blood Urea Nitrogen 20 mg/dL (9-23); Carbon Dioxide 26 mmol/L (20-31); Chloride 102 mmol/L (98-107); Sodium 137 mmol/L (136-145); Total Protein 6.6 g/dL (5.7-8.2)
[2024-11-20 07:03] LABS: Alkaline Phosphatase 157 U/L (46-116); Calcium 10.8 mg/dL (8.7-10.4); Glucose 181 mg/dL (74-106)
[2024-11-20 09:18] VITALS: BP 127/91; PULSE 94; RESP 17; TEMP 98.7; O2SAT 96
[2024-11-20] MEDS: amLODIPine BESYLATE 5 MG TAB PO SCH (09:36)
[2024-11-20] MEDS: GLIMEPIRIDE 2 MG TAB PO SCH (09:43)
[2024-11-20] MEDS: HYDROcodone-ACET 5/325MG TAB PO PRN (09:43)
--- NOTE | 2024-11-20 10:09 | DVHPN2 ---
Reviewed: Care Plan, H&P, Labs, Medications, Previous Orders, Radiology Changes from previous H/P or p: No Changes Objective Vitals Vital Signs Date Time Temp Pulse Resp B/P (MAP) Pulse Ox O2 Delivery O2 Flow Rate FiO2 11/20/24 09:36 127/91 11/20/24 09:18 98.7 94 17 96 98.7 11/20/24 08:00 Room Air* 0 21 Intake/Output Intake and Output 11/20/24 07:00 Intake Total 1950 ml Output Total 1200 ml Balance 750 ml Intake Oral 1950 ml Output Urine Total 1200 ml # Voids 10 # Bowel Movements 4 Medications Current Medications Medications Dose Ordered Sig/Berhane Route Start Time Stop Time Status Last Admin Dose Admin Tamsulosin HCl 0.4 mg DAILY PO 11/17/24 10:15 11/20/24 09:34 0.4 MG Hydralazine HCl 5 mg Q4H PRN IV 11/17/24 10:15 11/17/24 22:01 5 MG Sodium Chloride 10 ml Q8HR IV 11/17/24 14:00 11/20/24 06:04 10 ML Docusate Sodium 100 mg BIDPRN PRN PO 11/17/24 10:15 Acetaminophen 650 mg Q6HP PRN PO 11/17/24 10:15 Acetaminophen/ Hydrocodone Bitart 1 tab Q4HP PRN PO 11/17/24 10:15 11/20/24 09:43 1 TAB Hydromorphone HCl 0.5 mg Q4HP PRN IV 11/17/24 10:15 11/19/24 23:21 0.5 MG Ondansetron HCl 4 mg Q4HP PRN IV 11/17/24 10:15 Enoxaparin Sodium 40 mg DAILY SC 11/18/24 10:00 11/20/24 09:36 40 MG Pantoprazole Sodium 40 mg DAILY IV 11/17/24 10:30 11/20/24 09:35 40 MG Ceftriaxone Sodium 50 ml @ 100 mls/hr DAILY@09 IV 11/19/24 09:00 11/20/24 09:34 100 MLS/HR Hydroxyurea 500 mg DAILY PO 11/19/24 10:00 11/20/24 09:34 500 MG Amlodipine Besylate 5 mg DAILY PO 11/20/24 10:00 11/20/24 09:36 5 MG Glimepiride 4 mg DAILY PO 11/20/24 10:00 11/20/24 09:43 4 MG Laboratory Results Laboratory Tests 11/20/24 05:51 Chemistry Test 11/20/24 05:51 Albumin 4.2 g/dL (3.2-4.8) Calcium Level 10.8 mg/dL (8.7-10.4) H Total Protein 6.6 g/dL (5.7-8.2) LFT Test 11/20/24 05:51 Alanine Aminotransferase (ALT) 14 U/L (7-40) Alkaline Phosphatase 157 U/L (46-116) H Aspartate Amino Transferase (AST) 14 U/L (13-40) Total Bilirubin 0.4 mg/dL (0.2-1.0) Urinalysis Test 11/17/24 06:00 Urine Color Yellow (Yellow) Urine Clarity Clear (Clear) Urine pH 5.5 (5.0-9.0) Urine Specific [place] 1.028 (1.001-1.035) Urine Protein 1+ (Negative) H Urine Ketones Negative (Negative) Urine Blood Negative /uL (Negative) Urine Nitrite Negative (Negative) Urine Bilirubin Negative (Negative) Urine Urobilinogen Normal mg/dL (Negative) Urine Leukocyte Esterase 1+ /uL (Negative) Urine RBC 1 /hpf (0 - 4) Urine Microscopic WBC 5 /HPF (0-5) Urine Squamous Epithelial Cells Few /hpf (<5) Urine Bacteria None seen /hpf (None Seen) Urine Mucus Few (None Seen) Urine Glucose 1+ mg/dL (Normal) H Microbiology Microbiology Date/Time Source Procedure Growth Status 11/18/24 15:35 Blood Blood Culture - Preliminary NO GROWTH AFTER 24 HOURS OF INCUBATION. Resulted 11/17/24 06:00 Voided Urine Urine Culture - Preliminary Resulted Labs and/or images reviewed: Labs reviewed by me, Image(s) reviewed by me Assessment/Plan Assessment/Plan Sepsis secondary to acute pyelonephritis WBC 16.5 K: Blood cultures negative, urine cultures pending,, continue Rocephin 3 mm right ureteral calculus: Consult for Urology Dr. Mcdowell Acute diverticulosis, no diverticulitis Acute dehydration: IV fluids History of polycythemia vera: Continue home medication hydroxyurea Plan discussed with: Patient My Orders Orders - MARTI SLAUGHTER MD Procedure Category Date Status Time Amlodipine Tablet PHA 11/20/24 In Process (Norvasc Tablet) 10:00 Glimepiride Tablet PHA 11/20/24 In Process (Amaryl Tablet) 10:00 * Urology Consult CONS 11/20/24 Transmitted 10:02 Date of Service: Nov 20, 2024 Billing Provider: MARTI SLAUGHTER MD Common Visit Codes: [id number] INP/OBS CARE(HIGH) MARTI SLAUGHTER MD Nov 20, 2024 10:09
[2024-11-20 13:00] VITALS: BP 136/61; PULSE 71; RESP 17; TEMP 98.7; O2SAT 95
[2024-11-20 17:17] VITALS: BP 134/60; PULSE 73; RESP 17; TEMP 98.6; O2SAT 99
[2024-11-20 21:00] VITALS: BP 148/51; PULSE 59; RESP 17; TEMP 98.1; O2SAT 96
[2024-11-21] VITALS (9 sets, daily range): BP systolic 139–158; BP diastolic 62–69; PULSE 68–75; RESP 16–18; TEMP 97.6–98; O2SAT 96–98
[2024-11-21 07:12] LABS: Basophils # (auto) 0.1 10 ^3/uL (0-0.2); Eosinophils # (auto) 0.3 10 ^3/uL (0-0.8); Eosinophils % (auto) 1.5 % (0.0-7.0); Lymphocytes # (auto) 1.7 10 ^3/uL (0.4-5.4); Monocytes # (auto) 0.8 10 ^3/uL (0-1.3); Neutrophils # (auto) 16.6 10 ^3/uL (1.6-8.6)
[2024-11-21 07:15] LABS: Basophils % (auto) 0.5 % (0.0-2.0); Hematocrit 42.8 % (36.0-46.0); Hemoglobin 13.2 g/dL (12.2-16.2); Lymphocytes % (auto) 8.7 % (10.0-50.0); Mean Corpuscular Hemoglobin 26.6 pg (28.0-32.0); Monocytes % (auto) 4.3 % (0.0-12.0); Nucleated Red Blood Cells % 0.1 %; Platelet Count (auto) 227 10^3/uL (140-450); Red Blood Cells 4.97 10^6/uL (4.0-5.20); Red Cell Distribution Width 17.7 % (11.8-14.3); White Blood Cell 19.5 10^3/uL (4.4-10.8)
[2024-11-21 07:45] LABS: Alanine Aminotransferase 12 U/L (7-40); Albumin 4.1 g/dL (3.2-4.8); Anion Gap 8 (5-15); BUN/Creatinine Ratio 12.8 (10.0-20.0); Bilirubin, Total 0.4 mg/dL (0.2-1.0); Blood Urea Nitrogen 17 mg/dL (9-23); Carbon Dioxide 27 mmol/L (20-31); Chloride 103 mmol/L (98-107); Potassium 3.9 mmol/L (3.5-5.1); Sodium 138 mmol/L (136-145); Total Protein 6.4 g/dL (5.7-8.2)
[2024-11-21 07:46] LABS: Alkaline Phosphatase 150 U/L (46-116); Aspartate Aminotransferase 12 U/L (13-40); Calcium 10.5 mg/dL (8.7-10.4); Glucose 163 mg/dL (74-106)
[2024-11-21] MEDS ORDERED: POM PO (08:36)
[2024-11-21] MEDS ORDERED: TRAM-626 PO (12:02)
[2024-11-21] MEDS ORDERED: CIPR-173 PO (12:02)
[2024-11-21] MEDS ORDERED: TAMS-35 PO (12:02)
--- NOTE | 2024-11-21 12:04 | DVHPN2 ---
Reviewed: Care Plan, H&P, Labs, Medications, Previous Orders, Radiology Changes from previous H/P or p: No Changes Objective Vitals Vital Signs Date Time Temp Pulse Resp B/P (MAP) Pulse Ox O2 Delivery O2 Flow Rate FiO2 11/21/24 11:35 68 142/65 (90) 11/21/24 09:00 97.9 18 98 97.9 11/20/24 20:00 Room Air* 0 21 Intake/Output Intake and Output 11/21/24 07:00 Intake Total 1195 ml Balance 1195 ml Intake Oral 1145 ml IV Total 50 ml # Voids 7 Medications Current Medications Medications Dose Ordered Sig/Berhane Route Start Time Stop Time Status Last Admin Dose Admin Tamsulosin HCl 0.4 mg DAILY PO 11/17/24 10:15 11/21/24 09:51 0.4 MG Hydralazine HCl 5 mg Q4H PRN IV 11/17/24 10:15 11/17/24 22:01 5 MG Sodium Chloride 10 ml Q8HR IV 11/17/24 14:00 11/21/24 06:25 10 ML Docusate Sodium 100 mg BIDPRN PRN PO 11/17/24 10:15 Acetaminophen 650 mg Q6HP PRN PO 11/17/24 10:15 Acetaminophen/ Hydrocodone Bitart 1 tab Q4HP PRN PO 11/17/24 10:15 11/20/24 18:36 1 TAB Hydromorphone HCl 0.5 mg Q4HP PRN IV 11/17/24 10:15 11/19/24 23:21 0.5 MG Ondansetron HCl 4 mg Q4HP PRN IV 11/17/24 10:15 Enoxaparin Sodium 40 mg DAILY SC 11/18/24 10:00 11/21/24 09:52 40 MG Pantoprazole Sodium 40 mg DAILY IV 11/17/24 10:30 11/21/24 09:51 40 MG Ceftriaxone Sodium 50 ml @ 100 mls/hr DAILY@09 IV 11/19/24 09:00 11/21/24 09:52 100 MLS/HR Hydroxyurea 500 mg DAILY PO 11/19/24 10:00 11/21/24 09:50 500 MG Amlodipine Besylate 5 mg DAILY PO 11/20/24 10:00 11/21/24 09:51 5 MG Glimepiride 4 mg DAILY PO 11/20/24 10:00 11/21/24 09:51 4 MG Laboratory Results Laboratory Tests 11/21/24 06:24 Chemistry Test 11/21/24 06:24 Albumin 4.1 g/dL (3.2-4.8) Calcium Level 10.5 mg/dL (8.7-10.4) H Total Protein 6.4 g/dL (5.7-8.2) LFT Test 11/21/24 06:24 Alanine Aminotransferase (ALT) 12 U/L (7-40) Alkaline Phosphatase 150 U/L (46-116) H Aspartate Amino Transferase (AST) 12 U/L (13-40) L Total Bilirubin 0.4 mg/dL (0.2-1.0) Urinalysis Test 11/17/24 06:00 Urine Color Yellow (Yellow) Urine Clarity Clear (Clear) Urine pH 5.5 (5.0-9.0) Urine Specific [place] 1.028 (1.001-1.035) Urine Protein 1+ (Negative) H Urine Ketones Negative (Negative) Urine Blood Negative /uL (Negative) Urine Nitrite Negative (Negative) Urine Bilirubin Negative (Negative) Urine Urobilinogen Normal mg/dL (Negative) Urine Leukocyte Esterase 1+ /uL (Negative) Urine RBC 1 /hpf (0 - 4) Urine Microscopic WBC 5 /HPF (0-5) Urine Squamous Epithelial Cells Few /hpf (<5) Urine Bacteria None seen /hpf (None Seen) Urine Mucus Few (None Seen) Urine Glucose 1+ mg/dL (Normal) H Microbiology Microbiology Date/Time Source Procedure Growth Status 11/18/24 15:35 Blood Blood Culture - Preliminary NO GROWTH AFTER 48 HOURS OF INCUBATION. Resulted 11/17/24 06:00 Voided Urine Urine Culture - Final Complete Labs and/or images reviewed: Labs reviewed by me, Image(s) reviewed by me Assessment/Plan Assessment/Plan Sepsis secondary to acute pyelonephritis WBC 16.5 K: Blood cultures negative, urine cultures pending,, continue Rocephin 3 mm right ureteral calculus: Consult for Urology Dr. Mcdowell pending not seen Acute diverticulosis, no diverticulitis Acute dehydration: IV fluids History of polycythemia vera: Continue home medication hydroxyurea Patient does not have any pain anymore afebrile stable vital signs We will discharge home on she will follow up with Urology Dr. Sanford as an outpatient Plan discussed with: Patient Date of Service: Nov 21, 2024 Billing Provider: MARTI SLAUGHTER MD Common Visit Codes: [id number] INP/OBS CARE(HIGH) MARTI SLAUGHTER MD Nov 21, 2024 12:04
--- NOTE | 2024-11-21 12:09 | DVHDS2 ---
Discharge Summary Date of Admission Nov 17, 2024 at 10:14 Date of Discharge: Nov 21, 2024 Admitting Diagnosis Right flank pain Wounds: None Labs/Diagnostic Data: Laboratory Results Test 11/21/24 09:49 11/21/24 06:24 11/17/24 06:42 11/17/24 06:00 POC Glucose 296 mg/dl (70-106) White Blood Count 19.5 10^3/uL (4.4-10.8) Red Blood Count 4.97 10^6/uL (4.0-5.20) Hemoglobin 13.2 g/dL (12.2-16.2) Hematocrit 42.8 % (36.0-46.0) Mean Corpuscular Volume 86.0 fL (80.0-100.0) Mean Corpuscular Hemoglobin 26.6 pg (28.0-32.0) Mean Corpuscular Hemoglobin Concent 31.0 g/dL (32.0-36.0) Red Cell Distribution Width 17.7 % (11.8-14.3) Platelet Count 227 10^3/uL (140-450) Mean Platelet Volume 8.2 fL (6.9-10.8) Neutrophils (%) (Auto) 85.0 % (37.0-80.0) Lymphocytes (%) (Auto) 8.7 % (10.0-50.0) Monocytes (%) (Auto) 4.3 % (0.0-12.0) Eosinophils (%) (Auto) 1.5 % (0.0-7.0) Basophils (%) (Auto) 0.5 % (0.0-2.0) Neutrophils # (Auto) 16.6 10 ^3/uL (1.6-8.6) Lymphocytes # (Auto) 1.7 10 ^3/uL (0.4-5.4) Monocytes # (Auto) 0.8 10 ^3/uL (0-1.3) Eosinophils # (Auto) 0.3 10 ^3/uL (0-0.8) Basophils # (Auto) 0.1 10 ^3/uL (0-0.2) Nucleated Red Blood Cells 0.1 % Sodium Level 138 mmol/L (136-145) Potassium Level 3.9 mmol/L (3.5-5.1) Chloride Level 103 mmol/L (98-107) Carbon Dioxide Level 27 mmol/L (20-31) Anion Gap 8 (5-15) Blood Urea Nitrogen 17 mg/dL (9-23) Creatinine 1.33 mg/dL (0.550-1.02) Glomerular Filtration Rate Calc 42 mL/min (>90) BUN/Creatinine Ratio 12.8 (10.0-20.0) Serum Glucose 163 mg/dL (74-106) Calcium Level 10.5 mg/dL (8.7-10.4) Total Bilirubin 0.4 mg/dL (0.2-1.0) Aspartate Amino Transferase (AST) 12 U/L (13-40) Alanine Aminotransferase (ALT) 12 U/L (7-40) Alkaline Phosphatase 150 U/L (46-116) Total Protein 6.4 g/dL (5.7-8.2) Albumin 4.1 g/dL (3.2-4.8) Differential Total Cells Counted 100.0 (100) Neutrophils % (Manual) 80 (37.0-80.0) Band Neutrophils % (Manual) 2 Lymphocytes % (Manual) 12 (10.0-50.0) Monocytes % (Manual) 3 (0-12) Eosinophils % (Manual) 3 (0-7) Basophils % (Manual) 0 (0.0-2.0) Metamyelocytes % (manual) 0 Myelocytes % (Manual) 0 Promyelocytes % (Manual) 0 Blast Cells % (Manual) 0 Reactive Lymphocytes 0 Platelet Estimate Adequate Lactic Acid Level 0.9 mmol/L (0.4-2.0) Lipase 44 U/L (12-53) Urine Color Yellow (Yellow) Urine Clarity Clear (Clear) Urine pH 5.5 (5.0-9.0) Urine Specific [place] 1.028 (1.001-1.035) Urine Protein 1+ (Negative) Urine Ketones Negative (Negative) Urine Blood Negative /uL (Negative) Urine Nitrite Negative (Negative) Urine Bilirubin Negative (Negative) Urine Urobilinogen Normal mg/dL (Negative) Urine Leukocyte Esterase 1+ /uL (Negative) Urine RBC 1 /hpf (0 - 4) Urine Microscopic WBC 5 /HPF (0-5) Urine Squamous Epithelial Cells Few /hpf (<5) Urine Bacteria None seen /hpf (None Seen) Urine Mucus Few (None Seen) Urine Glucose 1+ mg/dL (Normal) Other Laboratory Tests 11/21/24 06:24 Brief Hx & Hospital Course: 4-year-old female with a history of polycythemia vera on hydroxyurea came in complaining of right flank pain found to have sepsis secondary to urinary tract infection pyelonephritis WBC 16.5 K treated with Rocephin blood cultures negative urine cultures pending. 3 mm right ureteral calculus. Consult placed for Dr. Mcdowell not seen. patient is afebrile no pain asymptomatic discharged home on Cipro tramadol and Flomax. She will follow up with the Urology Dr. Sanford as an outpatient in 10 days Consults/Reason for consult Consult for Urology Dr. Mcdowell pending Operations or Procedures CT abdomen pelvis without contrast Condition at Discharge: Fair Final Diagnosis/Problems List Sepsis secondary to acute pyelonephritis WBC 16.5 K: Blood cultures negative, urine cultures pending,, continue Rocephin 3 mm right ureteral calculus: Consult for Urology Dr. Mcdowell Acute diverticulosis, no diverticulitis Acute dehydration: IV fluids History of polycythemia vera: Continue home medication hydroxyurea Discharge Disposition: Home Discharge Instruct/Medications Diet: Regular Activity: Light activity Follow Up/Referral: Follow up with your primary Dr in one week Follow up with the Urology Dr. Sanford in 10 days Medications: Cipro Flomax Tramadol Transmitted to pharmacy 35 (Time taken for discharge summary 35 minutes) Discharge Statement: "Patient was advised to return to the ER or call 911 if any headaches, dizziness, shortness of breath, chest pain, abdominal pain, bleeding, fevers, or worsening of medical condition. Patient was counseled about treatment plan, medications, possible side effects, patientverbalized understanding. All questions were answered to the best of my ability. This discharge took greater then 30 minutes in planning, reviewing documentation, counseling the patient, and discussing with other team members." ASSESSMENT ASSESSMENT Hospital Course Improved Assessment Sepsis secondary to acute pyelonephritis WBC 16.5 K: Blood cultures negative, urine cultures pending,, continue Rocephin 3 mm right ureteral calculus: Consult for Urology Dr. Mcdowell Acute diverticulosis, no diverticulitis Acute dehydration: IV fluids History of polycythemia vera: Continue home medication hydroxyurea Date of Service: Nov 21, 2024 Billing Provider: MARTI SLAUGHTER MD Common Visit Codes: [id number] DISCH DAY >30min MARTI SLAUGHTER MD Nov 21, 2024 12:09
== END 2024-11-21 18:24 | disposition home or self-care (01) | DRG 872 ==
LOC: ER 05:25 → OVERFLOW 10:14 → EAST 10:18
PROVIDERS: ADMIT Internal Medicine; ATTEND Family Medicine
DX: A41.9 Sepsis, unspecified organism (principal); N10 Acute pyelonephritis; N20.2 Calculus of kidney with calculus of ureter; E86.0 Dehydration; E11.9 Type 2 diabetes mellitus without complications; K57.30 Diverticulosis of large intestine without perforation or abscess without bleeding; I10 Essential (primary) hypertension; D45 Polycythemia vera; Z90.49 Acquired absence of other specified parts of digestive tract
CPT/HCPCS: 36415; 74176; 76775; 80053; 81001; 82962; 83605; 83690; 85007; 85025; 85027; 87040; 87086; 96361; 96365; 96375; G0378; J2405; J2470